=== PATIENT | female | born 1960 | race African-American/Black ===

== ENCOUNTER 2017-10-02 11:37 | Emergency (ER) | payer MEDICARE, MEDICAID ==
[~2017-10-02] VITALS: Ht 177.8 cm; Wt 75.0 kg
[~2017-10-02 11:37] MED LIST: ATOR10TA PO; LACT1CAP14 MT; LOSA1TAB15 PO; METF500T PO; OMEP20TA15 PO; ONDA4TAB5 PO; PREG150C PO; SERT100T PO; TRAM50TA3 PO
[2017-10-02] MEDS ORDERED: HYDROCODONE/ACETAMINOPHEN 5/325MG TABLET PO ONE (14:30)
[2017-10-02 15:12] VITALS: BP 142/84
== END 2017-10-02 15:25 | disposition home or self-care (01) ==
LOC: ER 12:58
DX: S42.401A Unspecified fracture of lower end of right humerus, initial encounter for closed fracture (principal); M25.531 Pain in right wrist; I10 Essential (primary) hypertension; E78.00 Pure hypercholesterolemia, unspecified; E11.9 Type 2 diabetes mellitus without complications; W18.30XA Fall on same level, unspecified, initial encounter; Y93.89 Activity, other specified; Y92.89 Other specified places as the place of occurrence of the external cause; Y99.8 Other external cause status
CPT/HCPCS: 29105; 73080; 73110; 99284; A4565